=== PATIENT | female | born 1985 | race Caucasian/White ===

== ENCOUNTER 2024-06-13 16:07 | Emergency (ER) | payer BC, SELFPAY ==
[2024-06-13 16:13] VITALS: BP 139/79
[2024-06-13 16:33] LABS: % Basophils 0.3 % (0-2); % Eosinophils 1.8 % (0-6); % Immature Granulocytes 0.2 % (0-0.5); % Lymphocytes 20.4 % (20.5-51.1); % Monocytes 6.8 % (1.7-9.3); % Neutrophils 70.5 % (42.2-75.2); Absolute Eosinophils 0.2 10^3/uL (0-0.7); Absolute Lymphocytes 1.8 10^3/uL (1.2-3.4); Absolute Monocytes 0.6 10^3/uL (0.1-0.6); Absolute Neutrophils 6.1 10^3/uL (1.4-6.5); Hematocrit 39.3 % (37.0-47.0); Hemoglobin 13.5 g/dL (12.0-16.0); Mean Corp Hgb Conc. 34.4 g/dL (33.0-37.0); Mean Corpuscular Hgb 30.1 pg (27.0-31.0); Mean Corpuscular Volume 87.5 fL (81.0-99.0); Mean Platelet Volume 9.4 fL (7.4-10.4); Nucleated Red Blood Cells % 0 %; Platelet Count 271 10^3/uL (130-400); Red Blood Cell Count 4.49 10^6/uL (4.20-5.40); Red Cell Dist. Width 12.5 % (11.5-14.5); White Blood Cell Count 8.7 10^3/uL (4.8-10.8)
[2024-06-13 16:53] LABS: ALT (SGPT) 20 U/L (0-35); AST (SGOT) 19 U/L (14-36); Albumin 4.3 g/dl (3.5-5.0); Alkaline Phosphatase 71 U/L (38-126); Blood Urea Nitrogen 13 mg/dl (7-17); Calcium 9.4 mg/dl (8.4-10.2); Carbon Dioxide 24 mmol/L (22-30); Chloride 107 mmol/L (98-107); Glucose 113 mg/dl (70-99); Potassium 3.9 mmol/L (3.5-5.1); Sodium 141 mmol/L (135-145); Total Bilirubin 0.6 mg/dl (0.2-1.3); Total Protein 7.2 g/dl (6.3-8.2); eGFR > 60.00
[2024-06-13 17:08] LABS: HCG, Urine Qualitative Screen Negative; Urine Albumin 2+ (Neg - Trace); Urine Bilirubin Negative (Negative); Urine Character Slightly Cloudy (Clear); Urine Color Yellow; Urine Glucose Negative (Negative); Urine Ketone Negative (Negative); Urine Leukocyte Negative (Negative); Urine Nitrite Negative (Negative); Urine Occult Blood 4+ (Negative); Urine Specific Gravity 1.025 (<1.030); Urine Urobilinogen Negative (Neg - 1+)
[2024-06-13 17:26] LABS: Urine Squamous Cell 26-30 /LPF (Few)
[2024-06-13 17:27] LABS: Urine Bacteria Few (Negative); Urine Red Blood Cell 0-2 /HPF (0-2)
[2024-06-13 22:37] VITALS: BP 116/69
[2024-06-13] MEDS: FLOMAX 0.4 MG PO (23:17)
--- NOTE | 2024-06-13 23:22 | ED.GENMED ---
History of Present Illness
General
Chief Complaint: Flank Pain
Source: patient
Exam Limitations: none
Time Seen by Provider: 06/13/24 18:26
Nursing documentation reviewed up to this point in time: agreed with
History of Present Illness
History of Present Illness:
39-year-old female presenting to the emergency department today with concerns of left-sided flank discomfort ongoing today. No fevers chest pain shortness of breath able to urinate
Review of Systems
Review of Systems
Allergies reviewed?: Yes
All Other Systems: ROS reviewed and negative except as documented in HPI and ROS
Phy Exam
Physical Exam
Physical Exam:
GENERAL: Alert , in no apparent distress
EYE: pupils equal and reactive
NECK: Supple, no significant adenopathy.
ENT: o/p clr, mmm.
CARDIAC: Regular rate and rhythm .
LUNGS: Clear breath sounds bilaterally, no acute respiratory distress, no wheezes/rales/rhonchi
ABDOMEN: Soft, without focal tenderness, no r/g, no cvat
NEUROLOGICAL: Alert and oriented, no focal neuro deficits
SKIN: Warm and dry, skin intact.
MUSCULOSKELETAL: No edema, well perfused.
PSYCH: Normal and appropriate interaction.
Course
Orders/Labs/Results
Orders:
Orders
06/13/24 16:16
Test Result ONCE
06/13/24 16:26
Complete Blood Count/With Diff Urgent
Comprehensive Metabolic Panel Urgent
06/13/24 16:52
Urinalysis Reflex To Culture Urgent
Date Specimen was Collected: 06/13/24
Time Specimen was Collected: 16:16
Urine Microscopic Reflex Cult Urgent
Urine,Hcg qualitative screen [HCG, Urine Qualitative Screen] Urgent
Date Specimen was Collected: 06/13/24
Time Specimen was Collected: 16:16
06/13/24 19:17
CT Abd/pel Without Iv Or Oral Urgent
Comment:
Reason For Exam: Left flank pain
06/13/24 23:06
Tamsulosin [Flomax] 0.4 mg PO NOW STA
Abnormal Lab Results
06/13/24 06/13/24
16:26 16:52
Lymphocytes % 20.4 L %
(20.5-51.1)
Glucose 113 H mg/dl
(70-99)
Ur Occult Blood Reflex 4+ A
(Negative)
Urine Bacteria (Reflex) Few A
(Negative)
Urine Albumin (Reflex) 2+ A
(Neg - Trace)
06/13/24 16:26
06/13/24 16:26
Vital Signs
Initial and Last Documented VS:
Initial Vital Signs
Temp Pulse Resp BP Pulse Ox
98.5 F 87 18 139/79 98
06/13/24 16:13 06/13/24 16:13 06/13/24 16:13 06/13/24 16:13 06/13/24 16:13
Last Documented Vital Signs
Temp Pulse Resp BP Pulse Ox
98.5 F 76 18 116/69 99
06/13/24 16:13 06/13/24 22:37 06/13/24 16:13 06/13/24 22:37 06/13/24 22:37
MDM/Problems Addressed
MDM/Problems Addressed:
39-year-old female presenting to the emergency department today with concerns of left-sided flank pain. No fevers normal vital signs labs unremarkable urinalysis showing red blood cells but no evidence of infection. CT scan showing 3 mm stone
patient symptoms well-controlled no evidence of complication stable for outpatient follow-up return precautions given.
*Critical Care Note
Total Time (30-74mins, 75-104mins- exclusive of procedures): Not Applicable
ED Attending Note
-
Portions of this chart may have been created with voice recognition software.� Occasional wrong word or��sound alike� substitutions may have occurred due to the inherent limitations of voice recognition software.
Discharge Plan
Departure
Patient Disposition: Home (Routine Discharge)
Date of Disposition: 06/13/24
Time of Disposition: 23:28
Patient with high blood pressure during this ER visit?: No
Condition: Good
Covid-19: Not Applicable
Discharge Problem:
Kidney stone
Instructions: Kidney Stones (DC)
Prescriptions:
New
tamsulosin [Flomax] 0.4 mg capsule
0.4 mg PO HS Qty: 7 0RF
ondansetron 4 mg tablet,disintegrating
4 mg PO Q6H PRN (Reason: nausea and vomiting) Qty: 7 0RF
Referrals:
Selvin Candelaria MD [Active] - Follow up in 1 week
Henrik Corbin DO [Family Provider] -
Activity Restrictions/Additional Instructions:
You came to the emergency department today with concerns of flank pain. You are found to have a kidney stone. Please follow-up closely with urology and take all prescribed medications. Return for any worsening, new or concerning symptoms.
Interventions
Interventions:
*Risk Screen - Suicide Last Done: 06/13/24 16:13
*General Assessment Last Done: 06/13/24 16:13
*Neglect/Abuse Screening Last Done: 06/13/24 16:13
*ED- Fall Risk Assessment Last Done: 06/13/24 16:13
*ED COVID-19 Vaccine History Last Done: 06/13/24 16:13
IA-Ybogcz-Erycafsggu Assessment Last Done: 06/13/24 19:16
ED-Female Genitourinary Assessment Last Done: 06/13/24 19:16
Discharge Date and Time
Print Language: ETHIOPIAN
== END 2024-06-13 23:43 | disposition home or self-care (01) ==
LOC: EMR 16:07
PROVIDERS: Emergency Medicine; EMERGENCY PHYSICIAN Emergency Medicine; FAMILY PHYSICIAN Family Medicine
DX: N20.0 Calculus of kidney (principal)
CPT/HCPCS: 99284; 74176; 80053; 81003; 81015; 81025; 85025

== ENCOUNTER 2024-08-03 09:01 | Emergency (ER) | payer BC, SELFPAY ==
[2024-08-03 09:06] VITALS: BP 131/79
--- NOTE | 2024-08-03 09:12 | ED.GENMED ---
History of Present Illness
General
Chief Complaint: Back Pain
Time Seen by Provider: 08/03/24 09:12
History of Present Illness
History of Present Illness:
TIME OF INITIAL ENCOUNTER: 9:15 AM
HPI: The patient presents with left flank pain associate with vomiting. She was here about 2 months ago with similar symptoms and at that time was found to have a 3 mm stone just distal to the left UPJ. She followed up with Dr. Candelaria who
recommended getting an x-ray but she did not schedule this. This morning, she had severe pain similar to prior. The pain is still in the same location as before and has not progressed lower or into the abdomen.
EXAM:
GENERAL: Well appearing but appears uncomfortable
HEENT: Moist oral mucosa
CARDIOVASCULAR: No murmurs, normal heart rate, regular rhythm, No chest wall tenderness
PULMONARY: No respiratory distress, breath sounds are clear and equal
ABDOMEN: Soft with no peritoneal signs, no tenderness, left CVA tenderness
NEUROLOGIC: Excellent strength all extremities, no coordination deficits
PSYCHIATRIC: Appropriate mental status, normal insight and judgement
EXTREMITIES: Nontender, no edema, moves all extremities equally
SKIN: No rash, no lesions
NUMBER AND COMPLEXITY OF PROBLEMS ADDRESSED AT THE ENCOUNTER
� Chronic conditions affecting care: Has had kidney stones
� Acute Exacerbation and/or Progression of Chronic Illness: This is an acute but recurring problem
� Differential Diagnosis includes: Ureteral stone, infected stone, UTI, pyelonephritis
AMOUNT AND/OR COMPLEXITY OF DATA TO BE REVIEWED AND ANALYZED
� I performed an independent evaluation of and my interpretation is:
EKG:
CT:
X-rays: Hyperdensity noted at the left UPJ likely related to known stone
Laboratory Studies: Mild leukocytosis is noted, no evidence of UTI, hematuria noted
Other:
� Review of other/old records: I reviewed records, the patient presented with left-sided flank pain nearly 2 months ago and at that time was found to have a 3 mm stone just distal to the left UPJ
� Clinical information was obtained by an independent historian: I spoke to at bedside
� Prescriptions/Medications Considered but not given:
� Further testing considered but not performed:
RISK OF COMPLICATIONS AND/OR MORBIDITY OR MORTALITY OF PATIENT MANAGEMENT
� Social determinants of health affecting care: Lives at home
� Discussion with other providers: Notified Dr. Candelaria of patient's arrival and recommend starting with KUB and he prefers to hold off on taking to the OR; updated Dr. Candelaria of patient's workup
� Escalation of care including admission/observation vs risk of discharge considered:
ANY OTHER UPDATES:
10:45 AM: The patient overall feels improved after fluids and Toradol with Zofran were given. X-ray shows likely left ureteral stone. No clear evidence of UTI.
Phy Exam
Physical Exam
Physical Exam:
See HPI
Course
Orders/Labs/Results
Orders:
Orders
08/03/24 09:19
0.9% Sodium Chloride 1000 ml [Nss] 1,000 ml IV BOLUS
Ketorolac [Toradol] 15 mg IV NOW STA
Ondansetron Injectable [Zofran] 4 mg IV NOW STA
08/03/24 09:23
Test Result ONCE
08/03/24 09:24
CR Abdomen - 1 View Urgent
Comment:
Reason For Exam: known L 3mm UPJ stone; recurrence of pain
08/03/24 09:33
Complete Blood Count/With Diff Urgent
Comprehensive Metabolic Panel Urgent
HCG, Serum Qualitative Screen Urgent
Urinalysis Reflex To Culture Urgent
Date Specimen was Collected: 08/03/24
Time Specimen was Collected: 09:29
Urine Microscopic Reflex Cult Urgent
Abnormal Lab Results
08/03/24
09:33
WBC 14.2 H 10^3/uL
(4.8-10.8)
Abs Immat Gran (auto) 0.1 H 10^3/uL
(0-0.05)
Absolute Neuts (auto) 12.5 H 10^3/uL
(1.4-6.5)
Absolute Lymphs (auto) 0.7 L 10^3/uL
(1.2-3.4)
Absolute Monos (auto) 0.8 H 10^3/uL
(0.1-0.6)
Neutrophils % 88.3 H %
(42.2-75.2)
Lymphocytes % 5.1 L %
(20.5-51.1)
Chloride 109 H mmol/L
(98-107)
Glucose 115 H mg/dl
(70-99)
Urine Ketones 1+ A
(Negative)
Ur Occult Blood Reflex 4+ A
(Negative)
Urine Albumin (Reflex) 2+ A
(Neg - Trace)
08/03/24 09:33
08/03/24 09:33
Vital Signs
Initial and Last Documented VS:
Initial Vital Signs
Temp Pulse Resp BP Pulse Ox
36.6 C 81 16 131/79 100
08/03/24 09:06 08/03/24 09:06 08/03/24 09:06 08/03/24 09:06 08/03/24 09:06
Last Documented Vital Signs
Temp Pulse Resp BP Pulse Ox
36.6 C 81 16 112/68 96
08/03/24 09:06 08/03/24 09:06 08/03/24 09:06 08/03/24 10:01 08/03/24 10:02
*Critical Care Note
Total Time (30-74mins, 75-104mins- exclusive of procedures): Not Applicable
ED Attending Note
-
Portions of this chart may have been created with voice recognition software.� Occasional wrong word or��sound alike� substitutions may have occurred due to the inherent limitations of voice recognition software.
Discharge Plan
Departure
Patient Disposition: Home (Routine Discharge)
Date of Disposition: 08/03/24
Time of Disposition: 10:44
Patient with high blood pressure during this ER visit?: Yes
Discharge Problem:
Left ureteral stone
Instructions: Kidney stones in adults, BLOOD PRESSURE
Prescriptions:
New
oxycodone-acetaminophen [Percocet] 5-325 mg tablet
1 - 2 tab PO Q6HPRN PRN (Reason: pain) Qty: 14 0RF
tamsulosin [Flomax] 0.4 mg capsule
0.4 mg PO DAILY Qty: 14 0RF
ondansetron HCl 4 mg tablet
4 mg PO Q8H PRN (Reason: nausea and vomiting) Qty: 14 0RF
No Action
tamsulosin [Flomax] 0.4 mg capsule
0.4 mg PO HS Qty: 7 0RF
ondansetron 4 mg tablet,disintegrating
4 mg PO Q6H PRN (Reason: nausea and vomiting) Qty: 7 0RF
Referrals:
Selvin Candelaria MD [Active] - Follow up in 2-3 days
Henrik Corbin DO [Family Provider] -
Activity Restrictions/Additional Instructions:
The x-ray suggest that you likely still have the small stone in the upper portion of the left ureter as previously seen on CT imaging. We gave you a dose of Toradol which is a medicine similar to Motrin but given in IV form. I recommend 3-4
[id number] ibuprofen (Motrin) every 8 hours with food for a few days. Return here if worse. Call Dr. Candelaria for follow-up.
Interventions
Interventions:
*Risk Screen - Suicide Last Done: 08/03/24 09:06
*General Assessment Last Done: 08/03/24 09:06
*Neglect/Abuse Screening Last Done: 08/03/24 09:06
*ED- Fall Risk Assessment Last Done: 08/03/24 09:41
*ED COVID-19 Vaccine History Last Done: 08/03/24 09:41
ED-Musculoskeletal Assessment Last Done: 08/03/24 09:41
Discharge Date and Time
Print Language: ITALIAN
[2024-08-03] MEDS: TORADOL 15 MG IV (09:39)
[2024-08-03] MEDS: NSS 1000 IV (09:39)
[2024-08-03] MEDS: ZOFRAN 4 MG IV (09:39)
[2024-08-03 09:41] VITALS: BMI 34.6
[2024-08-03 09:44] VITALS: BP 118/103
[2024-08-03 09:53] LABS: % Basophils 0.3 % (0-2); % Eosinophils 0.1 % (0-6); % Immature Granulocytes 0.4 % (0-0.5); % Lymphocytes 5.1 % (20.5-51.1); % Monocytes 5.8 % (1.7-9.3); % Neutrophils 88.3 % (42.2-75.2); Absolute Immature Granulocytes 0.1 10^3/uL (0-0.05); Absolute Lymphocytes 0.7 10^3/uL (1.2-3.4); Absolute Monocytes 0.8 10^3/uL (0.1-0.6); Absolute Neutrophils 12.5 10^3/uL (1.4-6.5); Hematocrit 39.1 % (37.0-47.0); Hemoglobin 13.6 g/dL (12.0-16.0); Mean Corp Hgb Conc. 34.8 g/dL (33.0-37.0); Mean Corpuscular Hgb 30.3 pg (27.0-31.0); Mean Corpuscular Volume 87.1 fL (81.0-99.0); Mean Platelet Volume 9.6 fL (7.4-10.4); Nucleated Red Blood Cells % 0 %; Platelet Count 284 10^3/uL (130-400); Red Blood Cell Count 4.49 10^6/uL (4.20-5.40); Red Cell Dist. Width 12.3 % (11.5-14.5); White Blood Cell Count 14.2 10^3/uL (4.8-10.8)
[2024-08-03 09:57] LABS: HCG, Serum Qualitative Screen Negative
[2024-08-03 10:01] VITALS: BP 112/68
[2024-08-03 10:01] LABS: ALT (SGPT) 18 U/L (0-35); AST (SGOT) 20 U/L (14-36); Albumin 4.3 g/dl (3.5-5.0); Alkaline Phosphatase 71 U/L (38-126); Blood Urea Nitrogen 16 mg/dl (7-17); Calcium 9.1 mg/dl (8.4-10.2); Carbon Dioxide 23 mmol/L (22-30); Chloride 109 mmol/L (98-107); Estimated Creatinine Clearance 79 ml/min; Glucose 115 mg/dl (70-99); Potassium 4.5 mmol/L (3.5-5.1); Sodium 139 mmol/L (135-145); Total Bilirubin 0.8 mg/dl (0.2-1.3); Total Protein 7.4 g/dl (6.3-8.2); eGFR > 60.00
[2024-08-03 10:07] LABS: Urine Albumin 2+ (Neg - Trace); Urine Bilirubin Negative (Negative); Urine Character Clear (Clear); Urine Color Yellow; Urine Glucose Negative (Negative); Urine Ketone 1+ (Negative); Urine Leukocyte Negative (Negative); Urine Nitrite Negative (Negative); Urine Occult Blood 4+ (Negative); Urine Urobilinogen 1+ (Neg - 1+)
[2024-08-03 10:50] VITALS: BP 103/74
[2024-08-03 10:53] LABS: Urine Mucus Many; Urine Squamous Cell >30 /LPF (Few)
[2024-08-03 10:54] LABS: Urine Amorphous Seen
[2024-08-03 10:56] LABS: Urine Red Blood Cell 60-70 /HPF (0-2); Urine White Cell 0-2 /HPF (0-5)
[2024-08-03 10:57] LABS: Urine Bacteria Many (Negative)
== END 2024-08-03 11:13 | disposition home or self-care (01) ==
LOC: EMR 09:01
PROVIDERS: EMERGENCY PHYSICIAN Emergency Medicine; FAMILY PHYSICIAN Family Medicine
DX: N20.2 Calculus of kidney with calculus of ureter (principal); Z87.442 Personal history of urinary calculi
CPT/HCPCS: 99283; 96374; 96375; 96361; 74018; 80053; 81003; 81015; 84703; 85025; 87086

== ENCOUNTER → 2024-08-12 07:39 | Outpatient (REF) | payer BC, SELFPAY | LOC: RAD 07:39 | PROVIDERS: ATTENDING PHYSICIAN Specialist; FAMILY PHYSICIAN Family Medicine | DX: N20.0 Calculus of kidney (principal) | CPT/HCPCS: 74018 ==

== ENCOUNTER 2024-08-13 06:20 | Day surgery (SDC) | payer BC, SELFPAY ==
[2024-08-13] VITALS (10 sets, daily range): BP systolic 117–125; BP diastolic 70–87; BMI 34.3
[2024-08-13] MEDS: Pyridium 200 MG PO (17:38)
== END 2024-08-13 18:45 | disposition home or self-care (01) ==
LOC: SDS 06:20
PROVIDERS: ATTENDING PHYSICIAN Specialist
DX: N20.2 Calculus of kidney with calculus of ureter (principal)
CPT/HCPCS: 52356; 74018; 76000; A4300; C1894; C2617